=== PATIENT | female | born 1965 | race Caucasian/White ===

== ENCOUNTER → 2018-09-29 | Outpatient (CLI) | payer OTHER ==
[~2018-09-29] MED LIST: AMBIEN 5 MG TABL5 M1 PO; BACTRIM DS TAB1 EACH; IRON325 PO; Iron PO; VITAMINC500 PO; XANAX 0.25 MG0.25 MG PO
--- NOTE | 2018-09-29 14:55 | CARDNUC ---
[place] [address] CARDIAC NUCLEAR IMAGING REPORT Name: DIMAS MICHAEL Room: [facility]#: [id number] Admission: 09/29/18 Attend Phys: Trevon Medeiros Discharge: Date of : 61 Date of Service: 09/29/18 1455 Report #: [id number] THIS REPORT FOR: //name// APPROVED REPORT Study performed: 09/29/2018 09:23:43 Exam: Nuclear Stress Test Indication: Chest pain, Back pain, Jaw pain, Nausea. Patient Location: Out-Patient Stress Tech: Daniela Enrique Stress Nurse: Shavonne Ely Tech:JOEY Arias Ht: 5 ft 7 in Wt: 134 lbs BSA: 1.71 m2 BMI: 20.98 Medical History Medical History: Angina, Back pain, Jaw pain, Nausea,, Hyperlipidemia. Medications: No cardiac meds. Allergies: EES Cardiac Risk Factors: FHX of CAD, Hyperlipidemia. Previous Cardiac Procedures: None Pretest Chest Pain Characteristics: No chest pain Exercise History: Physically active Physical Disabilities: None Meds Held (24 hrs): None Stress Test Details Stress Test: Exercise stress testing was performed using a Edu protocol. HR Resting HR: 60 bpm Max Heart Rate (APMHR): 166 bpm Max HR Achieved: 150 bpm Target HR (85% APMHR): 141 bpm % of APMHR: 90 Recovery HR: 86 bpm BP Resting BP: 146/71 mmHg Max BP: 167/101 mmHg ECG Resting ECG: Sinus Rhythm Stress ECG: Sinus Tachycardia [address] [address] CARDIAC NUCLEAR IMAGING REPORT Name: DIMAS MICHAEL Room: [facility]#: [id number] Admission: 09/29/18 Attend Phys: Trevon Medeiros Discharge: Date of : 61 Date of Service: 09/29/18 1455 Report #: [id number] Change: Upsloping ST depression Maximum ST Deviation: 0.5 mm Arrhythmia: VPC's Recovery ECG: Sinus Rhythm Recovery ST Change: Upsloping ST depression Recovery ST Deviation: 0.5 mm Recovery Arrhythmia: None Clinical Reason for Termination: Maximal effort, Target HR achieved. Stress Symptoms: Dyspnea Exercise duration: 10 min 52 sec Exercise capacity: 13.24 METs Overall Exercise Capacity for Age: Superior The patient tolerated standard Edu protocol exercise without significant symptoms. Nurse Comments 52 year old female presented with recent HX of CP, back pain, jaw pain associated with nausea. Patient tolerated Edu Protocol Nuclear Medicine Stress Test well. Recovery unremarkable. Patient escorted by staff to Nuclear Medicine for images. Patient was stable with no complaints at that time. Stress ECG Conclusion The baseline 12-lead EKG showed sinus rhythm without significant ST or T-wave abnormality. EKGs obtained during and post exercise showed sinus rhythm and sinus tachycardia with 0.[address] segment depression noted in the inferolateral leads. Patient had occasional unifocal premature ventricular complexes. NM EXAM: Myocardial Perfusion REST/STRESS Resting Data Rest SPECT myocardial perfusion imaging was performed in supine position 30 minutes following the intravenous injection of 11.0 mCi of Tc-99m Sestamibi. Time of rest injection: 08 Date: 09/29/2018 The images were gated to evaluate regional wall motion and calculate left ventricular ejection fraction. Administration Route: IV Administration Site: Left Hand Exercise Stress At peak stress, the patient was injected intravenously with 35.1mCi of Tc-99m [place] [address] CARDIAC NUCLEAR IMAGING REPORT Name: PANCHOLULADIMASLAKESHIA VILLA Room: [facility]#: [id number] Admission: 09/29/18 Attend Phys: Trevon Medeiros Discharge: Date of : 61 Date of Service: 09/29/18 1455 Report #: [id number] Time of stress injection: 0945 Date: 09/29/2018 Administration Route: IV Administration Site: Left Hand Gated Stress SPECT was performed 30 minutes after stress injection. The images were gated to evaluate regional wall motion and calculate left ventricular ejection fraction. Prone imaging was performed. Study Quality Study: Good Artifact: No artifact Study Data At rest, the left ventricular ejection fraction was 65%.. Post stress, the left ventricular ejection was 66%.. TID = 0.98. Perfusion Normal left ventricular perfusion. Wall Motion Normal left ventricular wall motion. Nuclear Conclusion ECG Findings: negative for ischemia Clinical Findings: negative for ischemia Nuclear Findings: negative for ischemia Exercise Capacity: normal Left Ventricular Function: normal Risk Study: low Myocardial perfusion images show no defect to suggest infarct or ischemia. Left ventricular systolic function appears normal on gated studies. This is a low risk study. <Conclusion> The baseline 12-lead EKG showed sinus rhythm without significant ST or T-wave abnormality. EKGs obtained during and post exercise showed sinus rhythm and sinus tachycardia with 0.[address] segment depression noted in the inferolateral leads. Patient had occasional unifocal premature ventricular complexes. <ELECTRONICALLY SIGNED> By: Main Smith MD, FACC 09/29/18 1455 1455 1455 Main Smith MD, FACC /INF
== END ==
LOC: M.NUC 09-18 14:28
DX: R07.89 Other chest pain (principal); E78.5 Hyperlipidemia, unspecified; E78.00 Pure hypercholesterolemia, unspecified; I25.10 Atherosclerotic heart disease of native coronary artery without angina pectoris